=== PATIENT | female | born 1945 | race Caucasian/White ===

== ENCOUNTER → 2017-01-14 | Outpatient (CLI) | payer MEDICARE, OTHER ==
[~2017-01-14] MED LIST: BUDEPRION PO; CITA20TA5 PO; IRON PO; MELATONIN PO; MULT1TAB11 PO; OMEP40CA6 PO; PROBIOTIC PO
== END | disposition home or self-care (01) ==
LOC: CFH 09:26
PROVIDERS: ATTEND Internal Medicine
DX: Z12.31 Encounter for screening mammogram for malignant neoplasm of breast (principal)
CPT/HCPCS: G0202